=== PATIENT | female | born 2000 | race Caucasian/White ===

== ENCOUNTER 2018-08-17 21:44 | Emergency (ER) | payer MEDICAID ==
[~2018-08-17] VITALS: Ht 152.4 cm; Wt 64.9 kg
[2018-08-17 21:45] VITALS: BP_SYST 131
[2018-08-17 22:21] LABS: BILIRUBIN,URINE NEGATIVE (NEGATIVE); BLOOD, URINE NEGATIVE (NEGATIVE); CLARITY/URINE HAZY (CLEAR); COLOR,URINE YELLOW (YELLOW); GLUCOSE,URINE NEGATIVE (NEGATIVE); KETONES,URINE NEGATIVE (NEGATIVE); LEUKOCYTE ESTERASE ,URINE NEGATIVE (NEGATIVE); NITRITE, URINE NEGATIVE (NEGATIVE); PH,URINE 7.5 (5.0-8.0); PROTEIN URINE NEGATIVE (NEGATIVE)
[2018-08-17 23:24] VITALS: BP_SYST 124
== END 2018-08-17 23:24 | disposition home or self-care (01) ==
LOC: SED 21:44
DX: O26.892 Other specified pregnancy related conditions, second trimester (principal); R50.9 Fever, unspecified; J34.89 Other specified disorders of nose and nasal sinuses; M79.10 Myalgia, unspecified site; R51 Headache; Z3A.16 16 weeks gestation of pregnancy
CPT/HCPCS: 36415; 81003; 86710; 99284

== ENCOUNTER 2019-01-13 20:44 | Inpatient (IN) | payer MEDICAID ==
[~2019-01-13] VITALS: Ht 167.6 cm; Wt 96.6 kg
[2019-01-13 20:50] VITALS: BP_SYST 157
[2019-01-13] MEDS ORDERED: NACL 0.9% IV ONE (21:14)
[2019-01-13] MEDS ORDERED: PIPERACILLIN/TAZO 3.375 GM in NS 50 ML IV ONE (21:15)
[2019-01-13] MEDS ORDERED: PIPERACILLIN/TAZOBACTAM 3.375 GM/VIAL (ZOSYN) IV ONE (21:29)
[2019-01-13 21:32] LABS: MEAN CORPUSCULAR HEMOGLOBIN 29 pg (27-31); MEAN CORPUSCULAR HGB CONC 33 % (32-36); MEAN CORPUSCULAR VOLUME 89 fL (79.0-98.0); RED BLOOD CELL COUNT(AUTO) 2.09 MIL/uL (4.2-6.2); RED CELL DISTRIBUTION WIDTH 14.8 % (9.0-15.0); WHITE BLOOD COUNT (AUTO) 11.7 K/uL (4.5-11.0)
[2019-01-13 21:33] LABS: PLATELET COUNT (AUTO) 437 K/uL (130-430)
[2019-01-13 21:36] LABS: HEMOGLOBIN 6.1 g/dL (12.0-16.0)
[2019-01-13 21:37] LABS: HEMATOCRIT 18.6 % (36-48)
[2019-01-13 21:47] LABS: CALCIUM 8.5 mg/dL (8.4-11.0); CREATININE 0.52 mg/dL (0.55-1.30); POTASSIUM 3.9 mmol/L (3.5-5.1)
[2019-01-13 21:52] LABS: ATYPICAL LYMPHOCYTES % 0 % (0-0); BAND % (MANUAL) 1 % (0-6); BASOPHILS % (MANUAL) 0 % (0-2); EOSINOPHILS % (MANUAL) 3 % (0-7); LYMPHOCYTES % (MANUAL) 18 % (20-46); METAMYELOCYTES % 1 % (0-0); MONOCYTES % (MANUAL) 3 % (0-11)
[2019-01-13 21:52] LABS: ALBUMIN 2.3 g/dL (3.4-4.8); TOTAL BILIRUBIN 1.4 mg/dL (0.0-1.0)
[2019-01-13 22:37] LABS: BILIRUBIN,URINE NEGATIVE (NEGATIVE); BLOOD, URINE 3+ (NEGATIVE); CLARITY/URINE CLEAR (CLEAR); COLOR,URINE YELLOW (YELLOW); GLUCOSE,URINE NEGATIVE (NEGATIVE); KETONES,URINE 1+ (NEGATIVE); LEUKOCYTE ESTERASE ,URINE 1+ (NEGATIVE); NITRITE, URINE NEGATIVE (NEGATIVE); PROTEIN URINE 1+ (NEGATIVE)
[2019-01-13 22:45] LABS: BACTERIA,URINE FEW /HPF (None Seen)
[2019-01-14 01:46] VITALS: BP_SYST 153
[2019-01-14] MEDS ORDERED: PIPERACILLIN/TAZOBACTAM 3.375 GM/VIAL (ZOSYN) IV ONE (02:43)
[2019-01-14] MEDS ORDERED: HYDROcodone/ACETAMIN 5-325 MG TAB (NORCO/ VICODIN) PO PRN (04:30)
[2019-01-14] MEDS ORDERED: MORPHINE 4 MG/ML INJ. SYRINGE IVP PRN (04:30)
[2019-01-14] MEDS ORDERED: ACETAMINOPHEN 500 MG TABLET PO PRN (04:30)
[2019-01-14] MEDS ORDERED: cloNIDine HCL 0.1 MG TABLET PO PRN (04:30)
[2019-01-14] MEDS: PIPERACILLIN/TAZO 3.375 GM in NS 50 ML IV SCH ×3 (05:02→18:02)
[2019-01-14 08:09] LABS: CREATININE 0.53 mg/dL (0.55-1.30); POTASSIUM 4.1 mmol/L (3.5-5.1)
[2019-01-14 08:10] VITALS: BP_SYST 137
[2019-01-14 08:23] LABS: CALCIUM 8.3 mg/dL (8.4-11.0)
[2019-01-14 08:24] LABS: TOTAL BILIRUBIN 2.3 mg/dL (0.0-1.0)
[2019-01-14 08:31] LABS: EOSINOPHILS % (AUTO) 1.7 % (0.0-4.0); HEMATOCRIT 24.2 % (36-48); HEMOGLOBIN 8.1 g/dL (12.0-16.0); LYMPHOCYTES % (AUTO) 15.3 % (20.5-51.5); MEAN CORPUSCULAR HEMOGLOBIN 30 pg (27-31); MEAN CORPUSCULAR HGB CONC 34 % (32-36); MEAN CORPUSCULAR VOLUME 90 fL (79.0-98.0); MONOCYTES % (AUTO) 5.6 % (1.7-9.3); PLATELET COUNT (AUTO) 380 K/uL (130-430); RED CELL DISTRIBUTION WIDTH 14.6 % (9.0-15.0); WHITE BLOOD COUNT (AUTO) 11.9 K/uL (4.5-11.0)
[2019-01-14 08:32] LABS: BASOPHILS % (AUTO) 0.3 % (0.0-2.0); EOSINOPHILS # (AUTO) 0.2 K/uL (0.0-0.4); LYMPHOCYTES # (AUTO) 1.8 K/uL (1.0-5.5); MONOCYTES # (AUTO) 0.7 K/uL (0.0-1.0); NEUTROPHILS # (AUTO) 9.1 K/uL (1.8-7.7)
[2019-01-14] MEDS ORDERED: MULT-1089 PO (10:07)
[2019-01-14] MEDS ORDERED: AMOX500C2 PO (10:09)
[2019-01-14] MEDS ORDERED: FERR-69 PO (10:09)
[2019-01-14 11:15] LABS: NEUTROPHILS % (AUTO) 77.1 % (40.0-70.0)
[2019-01-14 12:18] VITALS: BP_SYST 137
[2019-01-14 14:39] VITALS: BP_SYST 142
[2019-01-14 15:40] VITALS: BP_SYST 142
[2019-01-14 18:32] LABS: HEMATOCRIT 29.6 % (36-48); MEAN CORPUSCULAR HEMOGLOBIN 30 pg (27-31); MEAN CORPUSCULAR VOLUME 88 fL (79.0-98.0); RED BLOOD CELL COUNT(AUTO) 3.36 MIL/uL (4.2-6.2); WHITE BLOOD COUNT (AUTO) 14.9 K/uL (4.5-11.0)
[2019-01-14 18:33] LABS: BASOPHILS % (AUTO) 0.3 % (0.0-2.0); EOSINOPHILS % (AUTO) 1.4 % (0.0-4.0); LYMPHOCYTES % (AUTO) 13.7 % (20.5-51.5); MEAN CORPUSCULAR HGB CONC 34 % (32-36); MONOCYTES % (AUTO) 5.3 % (1.7-9.3); NEUTROPHILS # (AUTO) 11.8 K/uL (1.8-7.7); NEUTROPHILS % (AUTO) 79.3 % (40.0-70.0); PLATELET COUNT (AUTO) 401 K/uL (130-430); RED CELL DISTRIBUTION WIDTH 14.7 % (9.0-15.0)
[2019-01-14 18:34] LABS: EOSINOPHILS # (AUTO) 0.2 K/uL (0.0-0.4); MONOCYTES # (AUTO) 0.8 K/uL (0.0-1.0)
[2019-01-14 21:17] VITALS: BP_SYST 137
[2019-01-15] MEDS: PIPERACILLIN/TAZO 3.375 GM in NS 50 ML IV SCH ×2 (00:14→05:32)
[2019-01-15 01:20] VITALS: BP_SYST 136
[2019-01-15 06:55] LABS: CREATININE 0.65 mg/dL (0.55-1.30); POTASSIUM 5.1 mmol/L (3.5-5.1)
[2019-01-15 07:08] LABS: TOTAL BILIRUBIN 1.9 mg/dL (0.0-1.0)
[2019-01-15 08:07] VITALS: BP_SYST 125
[2019-01-15 08:51] VITALS: BP_SYST 125
[2019-01-15 08:54] LABS: RED BLOOD CELL COUNT(AUTO) 3.37 MIL/uL (4.2-6.2); WHITE BLOOD COUNT (AUTO) 12.6 K/uL (4.5-11.0)
[2019-01-15 08:55] LABS: BASOPHILS % (AUTO) 0.2 % (0.0-2.0); EOSINOPHILS # (AUTO) 0.3 K/uL (0.0-0.4); EOSINOPHILS % (AUTO) 2.3 % (0.0-4.0); HEMATOCRIT 29.9 % (36-48); HEMOGLOBIN 9.9 g/dL (12.0-16.0); LYMPHOCYTES # (AUTO) 1.7 K/uL (1.0-5.5); LYMPHOCYTES % (AUTO) 13.8 % (20.5-51.5); MEAN CORPUSCULAR HEMOGLOBIN 29 pg (27-31); MEAN CORPUSCULAR HGB CONC 33 % (32-36); MEAN CORPUSCULAR VOLUME 89 fL (79.0-98.0); MONOCYTES # (AUTO) 0.7 K/uL (0.0-1.0); MONOCYTES % (AUTO) 5.7 % (1.7-9.3); NEUTROPHILS # (AUTO) 9.8 K/uL (1.8-7.7); PLATELET COUNT (AUTO) 390 K/uL (130-430); RED CELL DISTRIBUTION WIDTH 15.1 % (9.0-15.0)
== END 2019-01-15 09:51 | disposition home or self-care (01) | DRG 561 ==
LOC: SED 20:44 → STU 01-14 01:01 → SMU 01-14 08:47
PROVIDERS: ADMIT Internal Medicine Hospice and Palliative Medicine; ATTEND Internal Medicine Hospice and Palliative Medicine
PROC: 30233N1 Transfusion of Nonautologous Red Blood Cells into Peripheral Vein, Percutaneous Approach (ICD-10-PCS; principal; 2019-01-14)
DX: O86.12 Endometritis following delivery (principal); E43 Unspecified severe protein-calorie malnutrition; D50.9 Iron deficiency anemia, unspecified; O90.81 Anemia of the puerperium
CPT/HCPCS: 36415; 71045; 80053; 81000-TC; 83605; 85007; 85025; 85027; 86886; 86900; 86901; 86920; 87040-TC; 87081; 87086; 93005; 96365; 99285; J2270; J2543; J7040; P9021

== ENCOUNTER 2019-01-24 19:31 | Emergency (ER) | payer MEDICAID ==
[~2019-01-24] VITALS: Ht 152.4 cm; Wt 72.1 kg
[~2019-01-24 19:31] MED LIST: AMOX500C2 PO; FERR-69 PO; MULT-1089 PO
[2019-01-24 20:15] VITALS: BP_SYST 142
[2019-01-24 21:19] LABS: CALCIUM 9.2 mg/dL (8.4-11.0); CREATININE 0.64 mg/dL (0.55-1.30)
[2019-01-24 21:24] LABS: ALBUMIN 3.2 g/dL (3.4-4.8); TOTAL BILIRUBIN 1.9 mg/dL (0.0-1.0)
[2019-01-24 21:27] LABS: EOSINOPHILS % (AUTO) 2.5 % (0.0-4.0); HEMATOCRIT 37.4 % (36-48); HEMOGLOBIN 12.4 g/dL (12.0-16.0); LYMPHOCYTES % (AUTO) 23.9 % (20.5-51.5); MEAN CORPUSCULAR HEMOGLOBIN 29 pg (27-31); MEAN CORPUSCULAR HGB CONC 33 % (32-36); MEAN CORPUSCULAR VOLUME 88 fL (79.0-98.0); MONOCYTES % (AUTO) 5.8 % (1.7-9.3); NEUTROPHILS % (AUTO) 67.2 % (40.0-70.0); PLATELET COUNT (AUTO) 476 K/uL (130-430); RED BLOOD CELL COUNT(AUTO) 4.26 MIL/uL (4.2-6.2); RED CELL DISTRIBUTION WIDTH 14.5 % (9.0-15.0); WHITE BLOOD COUNT (AUTO) 6.9 K/uL (4.5-11.0)
[2019-01-24 21:28] LABS: BASOPHILS % (AUTO) 0.6 % (0.0-2.0); EOSINOPHILS # (AUTO) 0.2 K/uL (0.0-0.4); LYMPHOCYTES # (AUTO) 1.7 K/uL (1.0-5.5); MONOCYTES # (AUTO) 0.4 K/uL (0.0-1.0); NEUTROPHILS # (AUTO) 4.6 K/uL (1.8-7.7)
[2019-01-24] MEDS ORDERED: SULFAMETHOXAZOLE/TRIMETHOPR DS 1 TABLET PO ONE (21:45)
[2019-01-24] MEDS ORDERED: CEPHALEXIN 500 MG CAPSULE PO ONE (21:45)
[2019-01-24 22:08] VITALS: BP_SYST 122
== END 2019-01-24 22:05 | disposition home or self-care (01) ==
LOC: SED 19:31
DX: O86.01 Infection of obstetric surgical wound, superficial incisional site (principal); Z79.899 Other long term (current) drug therapy
CPT/HCPCS: 36415; 80053; 83605; 85025; 87040-TC; 99283

== ENCOUNTER 2019-07-29 08:34 | Emergency (ER) | payer MEDICAID ==
[~2019-07-29] VITALS: Ht 152.4 cm; Wt 63.5 kg
[2019-07-29 08:41] VITALS: BP_SYST 132
[2019-07-29 09:06] VITALS: BP_SYST 128
== END 2019-07-29 09:09 | disposition home or self-care (01) ==
LOC: SED 08:34
DX: S00.86XA Insect bite (nonvenomous) of other part of head, initial encounter (principal); Z86.2 Personal history of diseases of the blood and blood-forming organs and certain disorders involving the immune mechanism; Z79.899 Other long term (current) drug therapy; W57.XXXA Bitten or stung by nonvenomous insect and other nonvenomous arthropods, initial encounter; Y93.89 Activity, other specified; Y92.89 Other specified places as the place of occurrence of the external cause; Y99.8 Other external cause status
CPT/HCPCS: 99283

== ENCOUNTER 2019-10-27 16:47 | Emergency (ER) | payer MEDICAID ==
[~2019-10-27] VITALS: Ht 152.4 cm; Wt 63.5 kg
[2019-10-27 16:54] VITALS: BP_SYST 135
--- NOTE | 2019-10-27 17:00 | NUR ---
Patient triaged and placed in waiting room. VSS and patient appears in no acute distress at this time. Accompanied by boyfriend, awaiting available bed, and MD notified of need for MSE.
--- NOTE | 2019-10-27 17:28 | NUR ---
Patient to ER bed 05 for evaluation. Side rails up.
--- NOTE | 2019-10-27 17:34 | NUR ---
RADHA Taylor examining patient.
--- NOTE | 2019-10-27 17:43 | NUR ---
Patient is awake, alert, and oriented x4. Patient is complaining of flu symptoms x2 days, stating it just started "hitting me hard."
--- NOTE | 2019-10-27 17:52 | NUR ---
Patient given written and verbal discharge instructions and verbalizes understanding. ER MD discussed with patient the results and treatment provided. Patient in stable condition. ID arm band removed. Rx of promethazine, tamiflu, albuterol, motrin, azithromax given. Patient educated on pain management and to follow up with PMD. Pain Scale 0/10. Opportunity for questions provided and answered. Medication side effect fact sheet provided.
[2019-10-27 17:53] VITALS: BP_SYST 128
== END 2019-10-27 17:53 | disposition home or self-care (01) ==
LOC: SED 16:47
DX: J10.1 Influenza due to other identified influenza virus with other respiratory manifestations (principal); R03.0 Elevated blood-pressure reading, without diagnosis of hypertension; Z88.0 Allergy status to penicillin; Z88.8 Allergy status to other drugs, medicaments and biological substances
CPT/HCPCS: 36415; 86710; 99283

== ENCOUNTER 2023-09-27 13:42 | Emergency (ER) | payer MEDICAID ==
[~2023-09-27] VITALS: Ht 152.4 cm; Wt 68.0 kg
[2023-09-27 13:49] VITALS: BP_SYST 92; PULSE 80; RESP 22; TEMP 96.5; O2SAT 98
[2023-09-27 14:11] LABS: BASOPHILS % (AUTO) 0.2 % (0.0-2.0); EOSINOPHILS # (AUTO) 0.2 K/uL (0.0-0.4); EOSINOPHILS % (AUTO) 1.4 % (0.0-4.0); HEMOGLOBIN 10.5 g/dL (12.0-16.0); LYMPHOCYTES % (AUTO) 26.4 % (20.5-51.5); MEAN CORPUSCULAR HEMOGLOBIN 27 pg (27-31); MEAN CORPUSCULAR HGB CONC 33 % (32-36); MEAN CORPUSCULAR VOLUME 83 fL (79.0-98.0); MONOCYTES # (AUTO) 0.7 K/uL (0.0-1.0); MONOCYTES % (AUTO) 4.9 % (1.7-9.3); NEUTROPHILS # (AUTO) 10.1 K/uL (1.8-7.7); NEUTROPHILS % (AUTO) 67.1 % (40.0-70.0); PLATELET COUNT (AUTO) 427 K/uL (130-430); RED BLOOD CELL COUNT(AUTO) 3.85 MIL/uL (4.2-6.2); RED CELL DISTRIBUTION WIDTH 13.4 % (9.0-15.0)
[2023-09-27 14:25] LABS: ACETONE, SERUM NEGATIVE (NEGATIVE)
[2023-09-27 14:28] LABS: ANION GAP 11 (5-15); CALCIUM 9.3 mg/dL (8.4-11.0); CARBON DIOXIDE 26 mmol/L (23-29); CHLORIDE 104 mmol/L (98-107); CREATININE 0.64 mg/dL (0.55-1.30); GFR AFRICAN AMERICAN 147 mL/min (>90); GLUCOSE 115 mg/dL (74-106); POTASSIUM 3.4 mmol/L (3.5-5.1); SODIUM SERUM 141 mmol/L (136-145); UREA NITROGEN, BLOOD 13 mg/dL (8-21)
[2023-09-27 14:29] LABS: GFR NON AFRICAN-AMERICAN 121 mL/min (>90)
[2023-09-27 14:32] LABS: PROTHROMBIN TIME 10.2 SECS (9.5-12.5)
[2023-09-27 14:35] LABS: ALANINE AMINOTRANSFERASE 18 U/L (12-78); ALBUMIN 3.5 g/dL (3.4-4.8); ASPARTATE AMINOTRANSFERASE 8 U/L (10-37); BILIRUBIN,DIRECT 0.1 mg/dL (0.0-0.3); CREATINE KINASE, TOTAL 31 U/L (26-192); TOTAL BILIRUBIN 0.3 mg/dL (0.0-1.0); TOTAL PROTEIN, SERUM 6.9 g/dL (6.4-8.3)
[2023-09-27 14:36] LABS: HCG,QUANTITATIVE 91 mIU/ML (0-6)
[2023-09-27 15:20] VITALS: BP_SYST 100; PULSE 85; RESP 21; TEMP 97.1; O2SAT 98
== END 2023-09-27 15:19 | disposition home or self-care (01) ==
LOC: SED 13:42
DX: N93.9 Abnormal uterine and vaginal bleeding, unspecified (principal); Z79.899 Other long term (current) drug therapy
CPT/HCPCS: 36415; 80048; 80076; 82009; 82550; 83605; 84484; 84702; 85025; 85610-TC; 85730-TC; 86886; 86900; 86901; 93005; 99284

== ENCOUNTER 2024-03-25 07:58 | Emergency (ER) | payer MEDICAID, OTHER ==
[~2024-03-25] VITALS: Ht 152.4 cm; Wt 72.6 kg
[2024-03-25 08:02] VITALS: BP_SYST 136; PULSE 99; RESP 16; TEMP 96.9; O2SAT 98
[2024-03-25 08:44] LABS: BILIRUBIN,URINE 1+ (NEGATIVE); BLOOD, URINE 3+ (NEGATIVE); CLARITY/URINE CLOUDY (CLEAR); COLOR,URINE RED (YELLOW); GLUCOSE,URINE NEGATIVE (NEGATIVE); KETONES,URINE 1+ (NEGATIVE); LEUKOCYTE ESTERASE ,URINE 2+ (NEGATIVE); NITRITE, URINE POSITIVE (NEGATIVE); PH,URINE 6.5 (5.0-8.0); PROTEIN URINE 3+ (NEGATIVE)
[2024-03-25] MEDS: KETOROLAC TROMETHAMINE 30 MG VIAL IVP ONE (08:51)
[2024-03-25] MEDS: NACL 0.9% 1,000 ML IV ONE (08:52)
[2024-03-25] MEDS: KETOROLAC TROMETHAMINE 30 MG VIAL ONE (08:52)
[2024-03-25] MEDS: ONDANSETRON HCL 4 MG/2 ML VIAL IVP ONE (08:52)
[2024-03-25] MEDS: ONDANSETRON HCL 4 MG/2 ML VIAL ONE (08:53)
[2024-03-25 08:54] LABS: BACTERIA,URINE FEW /HPF (None Seen); MUCUS,URINE 1+ /LPF (None Seen); RBC,URINE >100 /HPF (0-3)
[2024-03-25 08:58] LABS: BASOPHILS % (AUTO) 0.2 % (0.0-2.0); EOSINOPHILS % (AUTO) 0.8 % (0.0-4.0); HEMATOCRIT 38.3 % (36-48); HEMOGLOBIN 12.5 g/dL (12.0-16.0); LYMPHOCYTES # (AUTO) 1.1 K/uL (1.0-5.5); MEAN CORPUSCULAR HEMOGLOBIN 23 pg (27-31); MEAN CORPUSCULAR HGB CONC 33 % (32-36); MEAN CORPUSCULAR VOLUME 71 fL (79.0-98.0); MONOCYTES # (AUTO) 0.5 K/uL (0.0-1.0); MONOCYTES % (AUTO) 7.9 % (1.7-9.3); NEUTROPHILS # (AUTO) 4.6 K/uL (1.8-7.7); NEUTROPHILS % (AUTO) 73.1 % (40.0-70.0); PLATELET COUNT (AUTO) 267 K/uL (130-430); RED BLOOD CELL COUNT(AUTO) 5.41 MIL/uL (4.2-6.2); RED CELL DISTRIBUTION WIDTH 19.1 % (9.0-15.0); WHITE BLOOD COUNT (AUTO) 6.2 K/uL (4.8-10.8)
[2024-03-25 09:22] LABS: ALBUMIN 3.6 g/dL (3.4-4.8); BILIRUBIN,DIRECT 0.1 mg/dL (0.0-0.3); CALCIUM 8.5 mg/dL (8.4-11.0); CREATININE 0.69 mg/dL (0.55-1.30); POTASSIUM 3.8 mmol/L (3.5-5.1); TOTAL BILIRUBIN 0.6 mg/dL (0.0-1.0); TOTAL PROTEIN, SERUM 7.7 g/dL (6.4-8.3)
[2024-03-25] MEDS: cefTRIAXone 1 GM IVPB PREMIX 50 ML IV ONE (10:08)
[2024-03-25] MEDS ORDERED: SULF1TAB48 PO (11:49)
[2024-03-25] MEDS ORDERED: ONDA-8 TL (11:49)
[2024-03-25] MEDS ORDERED: IBUP-1969 PO (11:49)
[2024-03-25 12:02] VITALS: BP_SYST 136; PULSE 99; RESP 16; TEMP 96.9; O2SAT 98
== END 2024-03-25 12:01 | disposition home or self-care (01) ==
LOC: SED 07:58
DX: N39.0 Urinary tract infection, site not specified (principal); N83.201 Unspecified ovarian cyst, right side; Z79.899 Other long term (current) drug therapy; Z79.2 Long term (current) use of antibiotics
CPT/HCPCS: 99285; 74176; 96365; 76856; 96375; 96361; 80076; 80048; 81001; 83690; 85025; 87086; 36415; 81025; J0696; J1885; J2405; J7030; 81000; 81015

== ENCOUNTER 2024-07-20 12:08 | Emergency (ER) | payer MEDICAID ==
[~2024-07-20] VITALS: Ht 152.4 cm; Wt 68.0 kg
[~2024-07-20 12:08] MED LIST changes: +IBUP-1969 PO; +ONDA-8 TL; +SULF1TAB48 PO
[2024-07-20 12:16] VITALS: BP_SYST 125; PULSE 88; RESP 17; TEMP 96.9; O2SAT 97
[2024-07-20 12:59] LABS: BILIRUBIN,URINE NEGATIVE (NEGATIVE); BLOOD, URINE 3+ (NEGATIVE); CLARITY/URINE CLOUDY (CLEAR); COLOR,URINE RED (YELLOW); GLUCOSE,URINE TRACE (NEGATIVE); KETONES,URINE 1+ (NEGATIVE); LEUKOCYTE ESTERASE ,URINE TRACE (NEGATIVE); NITRITE, URINE POSITIVE (NEGATIVE); PROTEIN URINE 2+ (NEGATIVE)
[2024-07-20 13:01] LABS: BASOPHILS % (AUTO) 0.2 % (0.0-2.0); EOSINOPHILS # (AUTO) 0.1 K/uL (0.0-0.4); EOSINOPHILS % (AUTO) 1.8 % (0.0-4.0); HEMATOCRIT 40.2 % (36-48); LYMPHOCYTES # (AUTO) 1.5 K/uL (1.0-5.5); LYMPHOCYTES % (AUTO) 21.8 % (20.5-51.5); MEAN CORPUSCULAR HEMOGLOBIN 26 pg (27-31); MEAN CORPUSCULAR HGB CONC 33 % (32-36); MEAN CORPUSCULAR VOLUME 80 fL (79.0-98.0); MONOCYTES # (AUTO) 0.3 K/uL (0.0-1.0); MONOCYTES % (AUTO) 4.8 % (1.7-9.3); NEUTROPHILS # (AUTO) 4.9 K/uL (1.8-7.7); NEUTROPHILS % (AUTO) 71.4 % (40.0-70.0); PLATELET COUNT (AUTO) 265 K/uL (130-430); RED BLOOD CELL COUNT(AUTO) 5.04 MIL/uL (4.2-6.2); RED CELL DISTRIBUTION WIDTH 15.5 % (9.0-15.0); WHITE BLOOD COUNT (AUTO) 6.8 K/uL (4.8-10.8)
[2024-07-20 13:10] LABS: BACTERIA,URINE RARE /HPF (None Seen); RBC,URINE >100 /HPF (0-3)
[2024-07-20 13:11] LABS: HYALINE CASTS, URINE 0-1 /LPF (None Seen)
[2024-07-20 13:14] LABS: PROTHROMBIN TIME 10.4 SECS (9.5-12.5)
== END 2024-07-20 14:01 | disposition home or self-care (01) ==
LOC: SED 12:08
DX: N39.0 Urinary tract infection, site not specified (principal); N93.9 Abnormal uterine and vaginal bleeding, unspecified; Z79.899 Other long term (current) drug therapy; Z79.2 Long term (current) use of antibiotics
CPT/HCPCS: 36415; 81000; 81001; 81015; 81025; 84702; 85025; 85610; 85730; 99283